=== PATIENT | male | born 1990 | race Caucasian/White ===

== ENCOUNTER → 2023-01-20 | Outpatient (CLI) | payer BC | LOC: M SOG 11:53 | PROVIDERS: ATTEND Physician Assistant | DX: M25.561 Pain in right knee (principal) ==

== ENCOUNTER → 2023-01-22 | Outpatient (CLI) | payer OTHER ==
[~2023-01-22] MED LIST: IBUP200C25 PO
== END ==
LOC: M RAD 12:55
PROVIDERS: ATTEND Physician Assistant
DX: S82.041A Displaced comminuted fracture of right patella, initial encounter for closed fracture (principal); W18.30XA Fall on same level, unspecified, initial encounter; Y92.009 Unspecified place in unspecified non-institutional (private) residence as the place of occurrence of the external cause

== ENCOUNTER 2023-01-24 14:20 | Day surgery (SDC) | payer OTHER ==
[~2023-01-24] VITALS: Ht 170.2 cm; Wt 70.0 kg
[2023-01-24] MEDS ORDERED: propofoL 200 MG/20 ML VIAL As Ordered ONE (14:28)
[2023-01-24] MEDS ORDERED: LIDOCAINE 2% 100MG/5ML SDV (FOR ANES.) As Ordered ONE (14:28)
[2023-01-24] MEDS ORDERED: ROCURONIUM BROMIDE 50MG/5ML VIAL As Ordered ONE (14:28)
[2023-01-24] MEDS ORDERED: SUGAMMADEX SODIUM 500 MG/5 ML VIAL (BRIDION) As Ordered ONE (14:28)
[2023-01-24] MEDS ORDERED: ONDANSETRON 4MG 2ML VIAL As Ordered ONE (14:28)
[2023-01-24] MEDS ORDERED: LR 1,000 ML IV SCH ×2 (15:05→19:25)
[2023-01-24] MEDS ORDERED: MIDAZOLAM INJ 2MG/2ML VIAL As Ordered ONE (16:06)
[2023-01-24] MEDS ORDERED: dexmedeTOMIDine (4MCG/ML)200MCG/50ML BTL (PRECEDEX) As Ordered ONE (16:06)
[2023-01-24] MEDS ORDERED: fentaNYL 250 MCG/5 ML INJECTION As Ordered ONE (16:06)
[2023-01-24] MEDS ORDERED: ceFAZolin 2 GM/D5W 50 ML IV BAG As Ordered ONE (16:24)
[2023-01-24] MEDS ORDERED: CLINDAMYCIN 900MG/50ML PREMIX BAG As Ordered ONE (16:50)
[2023-01-24] MEDS ORDERED: ePHEDrine SULFATE 25 MG/5 ML(5MG/ML) SYRINGE As Ordered ONE (16:58)
[2023-01-24] MEDS ORDERED: KETOROLAC 60MG 2ML VIAL As Ordered ONE (17:26)
[2023-01-24] MEDS ORDERED: HYDROmorphone HCL 2MG/ML 1ML VIAL As Ordered ONE (17:35)
[2023-01-24] MEDS ORDERED: ACETAMINOPHEN 1000MG 100ML IV BAG As Ordered ONE (18:19)
[2023-01-24] MEDS ORDERED: BACITRACIN OINTMENT 30GM TUBE As Ordered ONE (19:09)
[2023-01-24] MEDS ORDERED: fentaNYL 100 MCG/2 ML INJECTION IV PRN (19:25)
[2023-01-24] MEDS ORDERED: oxyCODONE 5MG TAB PO PRN (19:25)
[2023-01-24] MEDS ORDERED: ONDANSETRON 4MG 2ML VIAL IV PRN (19:25)
[2023-01-24] MEDS ORDERED: PERCOCET PO (19:34)
[2023-01-24 20:20] VITALS: BP 146/72; TEMP 98.1; O2SAT 99
== END 2023-01-24 20:43 | disposition home or self-care (01) ==
LOC: M SDC 14:20
PROVIDERS: ATTEND Orthopaedic Surgery Hand Surgery
DX: S82.041A Displaced comminuted fracture of right patella, initial encounter for closed fracture (principal); W11.XXXA Fall on and from ladder, initial encounter; Y93.9 Activity, unspecified; Y92.9 Unspecified place or not applicable; Z88.0 Allergy status to penicillin
CPT/HCPCS: 27524; 76000; C1713; C1762; J0131; J0665; J0690; J0737; J1100; J1170; J1885; J2250; J2405; J3010

== ENCOUNTER → 2023-01-31 | Outpatient (CLI) | payer OTHER ==
[~2023-01-31] MED LIST changes: +PERCOCET PO
== END ==
LOC: M SOG 08:02
PROVIDERS: ATTEND Physician Assistant
DX: S82.041A Displaced comminuted fracture of right patella, initial encounter for closed fracture (principal); X58.XXXA Exposure to other specified factors, initial encounter; Y92.9 Unspecified place or not applicable

== ENCOUNTER 2023-02-12 07:54 | Outpatient (RCR) | payer OTHER | END 2023-02-16 | LOC: M PT 07:54 | PROVIDERS: ATTEND Physician Assistant | DX: S82.041D Displaced comminuted fracture of right patella, subsequent encounter for closed fracture with routine healing (principal); W18.30XD Fall on same level, unspecified, subsequent encounter ==

== ENCOUNTER → 2023-03-10 | Outpatient (CLI) | payer OTHER | LOC: M SOG 08:01 | PROVIDERS: ATTEND Physician Assistant | DX: S82.041A Displaced comminuted fracture of right patella, initial encounter for closed fracture (principal); W18.30XA Fall on same level, unspecified, initial encounter; Y92.009 Unspecified place in unspecified non-institutional (private) residence as the place of occurrence of the external cause ==

== ENCOUNTER 2023-03-14 07:32 | Outpatient (RCR) | payer OTHER | END 2023-03-19 | LOC: M PT 07:32 | PROVIDERS: ATTEND Physician Assistant | DX: S82.041A Displaced comminuted fracture of right patella, initial encounter for closed fracture (principal); X58.XXXA Exposure to other specified factors, initial encounter; Y92.9 Unspecified place or not applicable; Y93.9 Activity, unspecified; Y99.9 Unspecified external cause status ==

== ENCOUNTER 2023-04-01 06:55 | Outpatient (RCR) | payer OTHER | END 2023-04-17 | LOC: M PT 06:55 | PROVIDERS: ATTEND Physician Assistant | DX: S82.041A Displaced comminuted fracture of right patella, initial encounter for closed fracture (principal) ==

== ENCOUNTER → 2023-04-10 | Outpatient (CLI) | payer OTHER | LOC: M SOG 07:55 | PROVIDERS: ATTEND Physician Assistant | DX: S82.041A Displaced comminuted fracture of right patella, initial encounter for closed fracture (principal); W18.30XA Fall on same level, unspecified, initial encounter; Y92.009 Unspecified place in unspecified non-institutional (private) residence as the place of occurrence of the external cause ==